=== PATIENT | female | born 1975 | race Caucasian/White ===

== ENCOUNTER 2016-10-03 20:45 | Emergency (ER) | payer BC ==
[~2016-10-03] VITALS: Ht 167.6 cm; Wt 61.3 kg
[2016-10-03 22:01] VITALS: BP 124/77
== END 2016-10-03 22:05 | disposition home or self-care (01) ==
LOC: EXP 20:45 → EME 20:45 → EXP 22:05
PROC: 2W3QX1Z Immobilization of Right Lower Leg using Splint (ICD-10-PCS; principal; 2016-10-03)
DX: S82.61XA Displaced fracture of lateral malleolus of right fibula, initial encounter for closed fracture (principal); W21.89XA Striking against or struck by other sports equipment, initial encounter; Y93.64 Activity, baseball; Y92.320 Baseball field as the place of occurrence of the external cause; Y99.8 Other external cause status
CPT/HCPCS: 73610; 99281; 99284